=== PATIENT | male | born 1940 | race Caucasian/White ===

== ENCOUNTER 2019-07-24 06:43 | Outpatient (CLI) | payer MEDICARE, MEDICAID, SELFPAY ==
[2019-07-24 06:54] VITALS: BMI 23.2
--- NOTE | 2019-07-24 07:10 | NMCV_ITS ---
NM betsy perf SPECT r/s* [id number] Nacho Esparza Age: 79 Gender: M : 1940 Exam Date: 07/24/2019 07:52 Ordering Phys: Jaime Parish MD Technologist: TODD De Jesus Exam Location: [facility] Indications: CHEST PAIN STRESS TEST Please see separate stress test report in [facility] for full findings IMAGE PROTOCOL Rest/Stress 1 Lexiscan Day Radiopharmaceutical Dose (mCi) Administration Site Administered by Rest: Tc-99m 11.0 IV Brianna Crocker, [employer]CR[employer] Sestamibi Stress:Tc-99m 32.6 IV Brianna Crocker, CONCR[employer]E [employer]SM[employer] Sestamibi Rest: 24-Jul-2019 60 Discovery 630 Stress: 24-Jul-2019 30 Discovery 630 0.4mg Lexiscan. Supine position only as patient was unable to lay prone. SPECT RESULTS Technical Quality: Excellent Raw Data Analysis: Normal Image Corrections: No attenuation or motion correction applied Summed Stress Score: 1 Summed Rest Score: 0 Summed Difference Score: 1 PERFUSION FINDINGS A small area decreases uptake in the mid inferolateral region, with almost complete reversibility. FUNCTIONAL RESULTS (calculated via Gated SPECT) Stress Image LV EF (%): 59 Stress EDV (mL):111 TID: 0.91 Stress ESV (mL):45 FUNCTIONAL FINDINGS: Segmental wall motion analysis revealing diffuse hypokinesia of the septum IMPRESSIONS 1. Myocardial perfusion imaging revealing a small area of reversible defect in the mid inferolateral region, suggestive of ischemia in the distribution of the left circumflex artery. 2. Normal LV ejection fraction of 59% 3. LV wall motion analysis revealing diffuse hypokinesia of the septum. 4. Slightly elevated LV cavity with an end-systolic volume of 45 mL. No similar previous studies available for comparison Dr Tevin Navarro MD FACC (Electronically Signed) Final Date: 24 July 2019 22:36 S
--- NOTE | 2019-07-24 07:10 | ECG_ITS ---
NAME OF STUDY: LEXISCAN SESTAMIBI STRESS TEST INDICATION: Chest Pain PROCEDURE: At the baseline, the EKG revealed sinus bradycardia with a rate of 52 bpm. 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 Q waves in the high lateral leads suggestive of old lateral wall myocardial infarction. Nonspecific T wave changes in the inferior leads. The baseline blood pressure was 154/82 mm Hg with a heart rate of 51 beats/min. Lexiscan was infused over a period of 20 seconds. A total of 0.4 milligrams of Lexiscan was infused. The stress phase was continued for a total of 5 minutes. Heart rate at the end of the stress phase was 65 with a blood pressure 172/74. The EKG at the peak infusion revealed no significant changes. Sestamibi was injected 20 seconds after the Lexiscan infusion. Blood pressure at the end of the recovery phase was 171/76 with a heart rate of 63 per minute. CONCLUSION: 1. No significant EKG changes with the LexiScan infusion 2. No LexiScan induced chest pain or cardiac arrhythmia 3. Normal blood pressure and heart rate response 4. Sestamibi/sestamibi perfusion scan pending; see separate report. Electronically Signed On 07-27-2019 6:43:17 CDT by Tevin Navarro M.D. [email or web address]
[2019-07-24] MEDS: regadenoson 0.4 Mg/5 ml Syringe IVP (09:02)
--- NOTE | 2019-07-24 09:02 | SUR.PREOP ---
Patient reports no pain or discomfort prior to the start of the procedure.
[2019-07-24 09:14] VITALS: BP 171/76; PULSE 63
== END 2019-07-24 06:44 | disposition home or self-care (01) ==
LOC: CDL 06:48
PROVIDERS: Family Provider Internal Medicine; PCP Internal Medicine; Visit Provider Internal Medicine
DX: R07.9 Chest pain, unspecified (principal)
CPT/HCPCS: 78452; 93017; A9500; J2785

== ENCOUNTER → 2021-11-12 12:14 | Outpatient (BNVA) | payer MEDICARE, MEDICAID, SELFPAY | PROVIDERS: Family Provider Internal Medicine; PCP Family Medicine; Visit Provider Internal Medicine Cardiovascular Disease | DX: R55 Syncope and collapse (principal); I63.9 Cerebral infarction, unspecified; I49.3 Ventricular premature depolarization; I49.1 Atrial premature depolarization | CPT/HCPCS: 93229 ==

== ENCOUNTER 2022-01-22 08:13 | Outpatient (CLI) | payer MEDICARE, MEDICAID, SELFPAY ==
--- NOTE | 2022-01-22 12:45 | USCV_ITS ---
IsaiasNacho ferreira Age: 81 Gender: M : 1940 Exam Date: 01/22/2022 08:37 Ordering Phys: Tevin Navarro MD ([email or web address]) Technologist: PETER Exam Location: [facility] [place] Indication: SYNCOPE, COLLAPSE, CVA Risk Factors: Previous Vascular Surgery: Right Brachial BP: / Left Brachial BP: / Right Left Velocity (cm/s) Spectral Plaque Velocity (cm/s) Spectral Plaque Syst/Diast Broadening Syst/Diast Broadening 82.90/ 15.40 Prox CCA 78.60 / 11.10 68.40/ 11.10 Mid CCA 66.40 / 11.20 56.50/ 12.50 Distal CCA 65.70 / 9.90 46.80/ 9.50 Prox ICA 48.20 / 14.00 42.70/ 8.20 Mid ICA 55.90 / 16.30 74.90/ 15.10 Distal ICA 65.30 / 18.60 100.80 ECA 174.80 0.90 ICA/CCA 0.83 Vertebral 47.50/ 9.60 cm/s 47.40/ 5.60 cm/s Subclavian 130.1 66.40 0 CONCLUSIONS Right ICA stenosis <50%. Mild atheromatous plaque right carotid bulb/ICA. Left ICA stenosis <50%. Mild atheromatous plaque left carotid bulb/ICA. Normal antegrade Doppler flow noted in the right vertebral artery. Normal antegrade Doppler flow noted in the left vertebral artery. Castillo Ureña MD (Electronically Signed) Final Date: 22 January 2022 13:33 S
== END 2022-01-22 08:14 | disposition home or self-care (01) ==
PROVIDERS: PCP Family Medicine; Visit Provider Internal Medicine Cardiovascular Disease
DX: I65.23 Occlusion and stenosis of bilateral carotid arteries (principal); R55 Syncope and collapse; I77.9 Disorder of arteries and arterioles, unspecified; I63.9 Cerebral infarction, unspecified
CPT/HCPCS: 93880

== ENCOUNTER 2022-05-17 03:42 | Emergency (ER) | payer MEDICARE, MEDICAID, SELFPAY ==
[2022-05-17] VITALS (32 sets, daily range): BP systolic 100–133; BP diastolic 54–100; PULSE 80–119; RESP 6–34; TEMP 36.8; O2SAT 90–96
--- NOTE | 2022-05-17 | CTR_ITS ---
PROCEDURE INFORMATION: Exam: CTA Chest With Contrast Exam date and time: 05/17/2022 4:58 AM Age: 82 years old Clinical indication: Shortness of breath; Prior surgery; Surgery date: 6+ months; Surgery type: Cabg; Patient HX: Chest pain, elevated d-dimer, troponin; Additional info: SOB TECHNIQUE: Imaging protocol: Computed tomographic angiography of the chest with contrast. 3D rendering (Not supervised by radiologist): MIP and/or 3D reconstructed images were created by the technologist. Radiation optimization: All CT scans at this facility use at least one of these dose optimization techniques: automated exposure control; mA and/or kV adjustment per patient size (includes targeted exams where dose is matched to clinical indication); or iterative reconstruction. Contrast material: OMNI 350; Contrast volume: 100 ml; Contrast route: INTRAVENOUS (IV); COMPARISON: CR (CHEST, ) 05/17/2022 3:56 AM RADIATION DOSE METRICS: Total DLP (mGy-cm): 884.33 FINDINGS: Pulmonary arteries: Normal. No pulmonary emboli. Aorta: Moderate burden of atherosclerotic plaque within the thoracic aorta. Thyroid: Enlarged left thyroid lobe with coarse calcifications. Lungs: Calcified granuloma in the left lower lobe. Mild airspace opacities in the right lower lobe. Pleural spaces: Small right pleural effusion. Heart: Cardiomegaly. Lymph nodes: Unremarkable. No enlarged lymph nodes. Spleen: Calcified splenic granulomas. Kidneys and ureters: Left renal sinus cysts. Bones/joints: Unremarkable. No acute fracture. Soft tissues: Unremarkable. CT/CT angio chest PE protcl [id number] IMPRESSION: 1. No pulmonary emboli identified. 2. Small right pleural effusion with mild right lower lobe airspace opacities, which may reflect atelectasis versus pneumonia. COMMENTS: Consistent with the [employer]'s Incidental Findings Committee white paper (J Am Astrid Radiol 2018): Any incidental renal lesion less than 1 cm or classified as too small to characterize, or any incidental cystic renal lesion characterized as simple-appearing, is likely benign. No follow-up imaging is recommended for these lesions per consensus recommendations based on imaging criteria.
--- NOTE | 2022-05-17 03:43 | XRR_ITS ---
PROCEDURE INFORMATION: Exam: XR Chest Exam date and time: 05/17/2022 3:56 AM Age: 82 years old Clinical indication: Pain; Chest pressure; Prior surgery; Surgery date: 6+ months; Surgery type: Cabg; Additional info: Cp TECHNIQUE: Imaging protocol: Radiologic exam of the chest. Views: 1 view. COMPARISON: CR XR chest 2V* [id number] 02/08/2018 2:40 PM FINDINGS: Lungs: Moderate COPD. Lung base densities have mildly increased. Pleural spaces: Unremarkable. No pleural effusion. No pneumothorax. Heart/Mediastinum: The heart is large. Previous CABG. Vasculature: Diffuse vascular calcification. Bones/joints: Unremarkable. XR/XR chest 1V portable [id number] IMPRESSION: 1. Increasing areas of lung base atelectasis or scarring. 2. No definite acute finding. 3. Large heart with CABG. Diffuse vascular calcification.
--- NOTE | 2022-05-17 03:43 | ECG_ITS ---
[facility] Test Date: 2022-05-17 Pat Name: Nacho Esparza Department: Room: Gender: Male Oncology Rep: : 1940 Requested By: Elba Card Order Number: [id number] Emma MD: Tevin Navarro M.D. 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 [id number]
--- NOTE | 2022-05-17 03:48 | W.ED.CHESTPA ---
Documented by User: Elba Card MD 05/17/22 05:35 HPI - Chest Pain General: Chief Complaint: Chest Pain Stated Complaint: cp Time Seen by Provider: 05/17/22 03:43 Source: patient Mode of arrival: ambulatory Limitations: no limitations History of Present Illness: 82-year-old male states that he woke up tonight at 1 AM with a sharp pain in the right side of his chest he states that radiated to his right shoulder. States he has no relieving or improving factors he states he does have some worsening pain with deep breaths no cough no fever rates his pain a 3 out of 10 currently did receive nitro and aspirin in route Associated symptoms: Deny abdominal pain, dyspnea, fever(s), nausea or vomiting Review of Systems Const: Denies: fever(s), chills, body aches or change in appetite Eyes: Denies: blurry vision or eye discomfort ENMT: Denies: throat pain or dental pain Card: Reports: chest pain Resp: Denies: dyspnea GI: Denies: abdominal pain, nausea, vomiting or diarrhea : Denies: dysuria Musc: Denies: neck pain or back pain Skin/Breast: Denies: rash Neuro: Denies: headache(s) Psych: Denies: depression Dario/Lymph: Denies: easy bruising All/Imm: Denies: urticaria PFSH ED PFSH: Medical History A-fib BPH (benign prostatic hyperplasia) Diabetes mellitus Gout Hand arthritis Hyperlipidemia Hypertension Iron deficiency Post-polio syndrome Surgical History History of esophagogastroduodenoscopy (EGD) History of open heart surgery S/P appendectomy S/P colonoscopy S/P eye surgery Family History Father Bleeding disorder Clotting disorder CAD (coronary artery disease), Onset Age: 60 Stroke Mother Clotting disorder Brother Clotting disorder Brother Clotting disorder Other Cancer Heart disease Denies family history of Diabetes Dementia Suicide Anesthesia complication Lung disease Social History Smoking and tobacco status: former smoker Alcohol intake: current Alcohol intake frequency: holidays/special occasions only Household members: spouse Housing: House Marital status: Current occupational status: retired Physical Exam Const: COMMON NORMALS: no acute distress, patient oriented x3 and healthy appearing HENMT: COMMON NORMALS: normocephalic and atraumatic HEAD & SCALP: normocephalic and atraumatic Eye: COMMON NORMALS: Equal, round and reactive pupils present and EOMs intact bilaterally PUPIL: Yes Equal, round and reactive pupils present Neck/C-Spine: COMMON NORMALS: full ROM and supple Chest: COMMONS NORMALS: normal inspection of the chest and normal palpation of entire chest wall Resp: COMMON NORMALS: normal respiratory effort, No retractions, No use of accessory muscles and clear to auscultation bilaterally AUSCULTATION: clear to auscultation bilaterally Cardio: COMMON NORMALS: regular rate, regular rhythm and No murmurs present (Cardio) RATE: regular rate RHYTHM: regular rhythm GI: COMMON NORMALS: Normal to inspection, nondistended, normoactive bowel sounds present, Soft to palpation, non-tender and no masses PALPATION: Yes Soft to palpation Extremity: COMMON NORMALS: normal to inspection and full ROM Neuro: COMMON NORMALS: patient oriented x3, moves all extremities and no focal motor deficits Psych: COMMON NORMALS: mental status grossly normal, Normal thought process present and cooperative THOUGHT PROCESS: Normal thought process present Skin: COMMON NORMALS: no rashes or lesions noted and no wounds GENERAL SKIN EXAM: no rashes or lesions noted Course Vital Signs: Vital signs: Vital Signs Temperature 98.2 F 05/17/22 03:43 Pulse Rate 94 05/17/22 08:50 Respiratory Rate 20 H 05/17/22 08:50 Blood Pressure 119/80 05/17/22 08:50 Pulse Oximetry 91 05/17/22 08:50 Oxygen Delivery Me thod 05/17/22 03:48 MDM - Chest Pain Lab Data 05/17/22 03:52 05/17/22 03:52 Radiology Impressions Chest CTA 05/17/22 00:00 IMPRESSION: 1. No pulmonary emboli identified. 2. Small right pleural effusion with mild right lower lobe airspace opacities, which may reflect atelectasis versus pneumonia. COMMENTS: Consistent with the [place] [employer]'s Incidental Findings Committee white paper (J Am Astrid Radiol 2018): Any incidental renal lesion less than 1 cm or classified as too small to characterize, or any incidental cystic renal lesion characterized as simple-appearing, is likely benign. No follow-up imaging is recommended for these lesions per consensus recommendations based on imaging criteria. Chest X-Ray 05/17/22 03:43 IMPRESSION: 1. Increasing areas of lung base atelectasis or scarring. 2. No definite acute finding. 3. Large heart with CABG. Diffuse vascular calcification. Laboratory Results WBC 9.0 10^3/uL (4.0-10.0) 05/17/22 03:52 RBC 4.40 10^6/uL (4.1-5.3) 05/17/22 03:52 Hgb 13.7 g/dL (11.7-16.6) 05/17/22 03:52 Hct 41.3 % (42.0-52.0) L 05/17/22 03:52 MCV 93.9 fl (80-94) 05/17/22 03:52 MCH 31.1 pg (28.0-34.0) 05/17/22 03:52 MCHC 33.2 g/dL (30.0-36.0) 05/17/22 03:52 RDW 13.2 % (12.1-15.1) 05/17/22 03:52 Plt Count 129 10^3/cmm (130-400) L 05/17/22 03:52 MPV 11.1 fL (7.4-10.4) H 05/17/22 03:52 Neut % (Auto) 77.8 % 05/17/22 03:52 Lymph % (Auto) 11.8 % 05/17/22 03:52 [place] % (Auto) 8.8 % 05/17/22 03:52 Eos % (Auto) 0.7 % 05/17/22 03:52 Baso % (Auto) 0.3 % 05/17/22 03:52 Neut # (Auto) 7.03 10^3/uL (1.8-7.7) 05/17/22 03:52 Lymph # (Auto) 1.1 10^3/uL (0.8-4.8) 05/17/22 03:52 [place] # (Auto) 0.8 10^3/uL (0.2-0.9) 05/17/22 03:52 Eos # (Auto) 0.1 10^3/uL (0.0-0.8) 05/17/22 03:52 Baso # (Auto) 0.0 10^3/uL (0.0-0.1) 05/17/22 03:52 Nucleated RBC % (auto) 0 % 05/17/22 03:52 Nucleated RBCs # 0.0 /100WBC 05/17/22 03:52 PT 14.80 SECONDS (12.1-14.9) 05/17/22 03:52 INR 1.13 (0.8-1.2) 05/17/22 03:52 D-Dimer 1.22 ug/mIFEU (0-0.59) H 05/17/22 03:52 Sodium 137 mmol/L (136-145) 05/17/22 03:52 Potassium 3.8 mmol/L (3.5-5.1) 05/17/22 03:52 Chloride 103 mmol/L (98-107) 05/17/22 03:52 Carbon Dioxide 23 mmol/L (22-29) 05/17/22 03:52 Anion Gap 14.8 (5-19) 05/17/22 03:52 BUN 21 mg/dL (8-23) 05/17/22 03:52 Creatinine 0.9 mg/dL (0.7-1.2) 05/17/22 03:52 GFR Calculation Not Reportable 05/17/22 03:52 Glucose 193 mg/dL (65-115) H 05/17/22 03:52 Calculated Osmolality 292 mOsm/kg (285-295) 05/17/22 03:52 Calcium 8.3 mg/dL (8.5-10.5) L 05/17/22 03:52 Total Bilirubin 0.7 mg/dL (0.15-1.2) 05/17/22 03:52 AST 18 U/L (0-40) 05/17/22 03:52 ALT 18 U/L (0-41) 05/17/22 03:52 Alkaline Phosphatase 89 U/L (40-130) 05/17/22 03:52 Troponin T Baseline 29 ng/L (0-15) H 05/17/22 03:52 Troponin T 120 Minute 20.43 ng/L (0-15) H 05/17/22 06:05 Delta Troponin T -8.57 ABS# (0-10) L 05/17/22 06:05 NT-Pro-B Natriuret Pep 1193 pg/mL (0-450) H 05/17/22 03:52 Total Protein 6.5 g/dL (6.6-8.7) L 05/17/22 03:52 Albumin 4.0 g/dL (3.5-5.2) 05/17/22 03:52 Globulin 2.5 g/dL (1.3-4.6) 05/17/22 03:52 EKG Data EKG 1: I personally reviewed and interpreted this EKG as follows: EKG interpretation date: 05/17/22 EKG interpretation time: 03:47 Interpretation: r hr [address] or t wave abnormalities qrs 101 qtc 420 Discharge Plan Discharge Patient Disposition: Home Clinical Impression: A-fib, Chest pain Condition: Stable Prescriptions: New doxycycline hyclate 100 mg capsule 100 mg PO BID 7 Days Qty: 14 0RF No Action tramadol 50 mg tablet 50 mg PO Q8H PRN (Reason: pain) Qty: 60 5RF nitroglycerin 0.4 mg tablet, sublingual 0.4 mg SUBLINGUAL Q5M PRN (Reason: chest pain) Qty: 25 3RF Rx Instructions: do not exceed 3 doses per episode glipizide 10 mg tablet extended release 24hr 10 mg PO DAILY insulin glargine [Basaglar KwikPen U-100 Insulin] 100 unit/mL (3 mL) insulin pen 14 unit SUBCUT DAILY amlodipine 10 mg tablet 10 mg PO DAILY aspirin [Adult Aspirin Regimen] 81 mg tablet,delayed release (DR/EC) 81 mg PO DAILY Qty: 90 3RF lisinopril 40 mg tablet 40 mg PO DAILY Qty: 90 3RF (DME) blood-glucose meter [Accu-Chek Naty Plus Meter] Misc See Rx Instructions .ROUTE .MEDSUPPLY Qty: 1 0RF Rx Instructions: check blood sugar once daily as directed (DME) Accu-Chek Naty Plus test strp Strip See Rx Instructions .ROUTE .MEDSUPPLY Qty: 100 5RF Rx Instructions: test blood sugar once daily as directed Discharge Orders: Discharge ED (Routine); Ordered 05/17/22 Ordered By: Charles Taylor Referrals: Ashleigh Ulloa MD [Primary Care Provider] - Discharge Diet: Usual diet Discharge Activity: Increase activity as tolerated Patient Instructions: Opioid Safety, Pain Management Activity Restrictions/Additional Instructions: As we discussed while you are in the emergency department we did not have any indication that you are having a heart attack or other serious condition at the time you were in the emergency department. There was some findings on your chest CT that we shared and if you develop fevers, productive cough, body aches or worsening feelings of infection etc. you should begin the antibiotics that we have sent to your pharmacy. If you do not develop any of the symptoms you do not need to take those antibiotics. Should you develop sustained chest pain, shortness of breath or any other concerns return to this or the nearest emergency department. Otherwise continue all your usual medications as previously prescribed. Coding Level of Care Code ED Field Support Rep for Chg Fwd Exam Comprehensive Documented by User: Charles Taylor DO 05/17/22 09:35 HPI - Chest Pain General: Chief Complaint: Chest Pain Stated Complaint: cp Time Seen by Provider: 05/17/22 03:43 [facility] ED PFSH: Medical History A-fib BPH (benign prostatic hyperplasia) Diabetes mellitus Gout Hand arthritis Hyperlipidemia Hypertension Iron deficiency Post-polio syndrome Surgical History History of esophagogastroduodenoscopy (EGD) History of open heart surgery S/P appendectomy S/P colonoscopy S/P eye surgery Family History Father Bleeding disorder Clotting disorder CAD (coronary artery disease), Onset Age: 60 Stroke Mother Clotting disorder Brother Clotting disorder Brother Clotting disorder Other Cancer Heart disease Denies family history of Diabetes Dementia Suicide Anesthesia complication Lung disease Social History Smoking and tobacco status: former smoker Alcohol intake: current Alcohol intake frequency: holidays/special occasions only Household members: spouse Housing: House Marital status: Current occupational status: retired Course Reevaluation(s): Reevaluation #1: Assumed care of this patient from Dr. Card. We reviewed his current presentation and pending work-up. Time: 06:02 Reevaluation #2: Patient was interviewed and reexamined. Patient states that he developed some right shoulder pain and seem to go into his left shoulder approximately 1 AM this morning. He states there is no associated diaphoresis, shortness of breath, ripping tearing pain etc. He has not had any recent fevers cough or illness. He does admit to being pretty active and he cut wood in the last few days but that is not something he normally does and he does not recall feeling like he strained a muscle or hurt himself at that time. He is alert in no acute distress. Focused examination reveals him to be alert and responsive. His chest is remarkable for tenderness in the anterior portion laterally both on the right and the left particularly in the pectoralis muscle region. No central chest tenderness. Symptoms are exacerbated somewhat with deep breaths. His cardiovascular Tom is regular with out murmur, lungs are clear. Abdomen is soft and his extremities feel no edema no calf tenderness. He has imaging are reassuring. Does have lower lung atelectasis versus infiltrate per radiology however again he has had no fevers or chills making pneumonia or other infection extremely less likely. Certainly no evidence of PE. His serial EKGsThis patient returns to the emergency department. Revealed no ischemic changes he is in atrial fib flutter with a controlled ventricular response which has been documented in prior cardiology evaluations. I discussed all findings and their implications and limitations with the patient and family. While his initial troponin was slightly elevated over the cutoff the second troponin has followed significantly mitigating against any ongoing ischemia. We discussed risks and benefits of continued observation versus discharge to home follow-up and he is only in favor the latter versus the former. He has no symptoms that suggest infectious process however there is some questionable changes on his chest CT and we discussed delayed antibiotic prescription should he develop fevers, present persistent or worsening cough, body aches etc. He acknowledged this plan as well. It is felt that current symptoms are likely related to musculoskeletal etiology as the examination today by me reproduces his symptoms as stated in his original complaint. We discussed return precautions in detail. Stable at this time for outpatient management as per his wishes. Time: 09:30 Vital Signs: Vital signs: Vital Signs Temperature 98.2 F 05/17/22 03:43 Pulse Rate 94 05/17/22 08:50 Respiratory Rate 20 H 05/17/22 08:50 Blood Pressure 119/80 05/17/22 08:50 Pulse Oximetry 91 05/17/22 08:50 Oxygen Delivery La thod 05/17/22 03:48 MDM - Chest Pain Medical Decision Making Patient with a known history of atrial fibrillation who presented with right-sided and left-sided shoulder pain. His evaluation here initially showed a elevated troponin as well as an elevated D-dimer. Subsequent troponins fell as well as a CTA was negative for any findings that suggested a thromboembolic event etc. His EKGs revealed no ischemic changes I did have a controlled ventricular response of his atrial for flutter. Differential initially included ACS, pulmonary embolus, other significant tensional causes such as pleurisy, pneumonia etc. No clear evidence of any of these conditions at this time and seems more likely due to a musculoskeletal etiology likely related to his physical activity that preceded his current presentation however we discussed delayed antibiotic use, return precautions in detail etc. Both he and his family agreed and were in inclined to be managed as an outpatient with good return precautions. Stable at this time. Medical Records I reviewed the patient's medical records. Lab Data I reviewed the patient's lab results. 05/17/22 03:52 05/17/22 03:52 Radiology Impressions Chest CTA 05/17/22 00:00 IMPRESSION: 1. No pulmonary emboli identified. 2. Small right pleural effusion with mild right lower lobe airspace opacities, which may reflect atelectasis versus pneumonia. COMMENTS: Consistent with the [place] [employer]'s Incidental Findings Committee white paper (J Am Astrid Radiol 2018): Any incidental renal lesion less than 1 cm or classified as too small to characterize, or any incidental cystic renal lesion characterized as simple-appearing, is likely benign. No follow-up imaging is recommended for these lesions per consensus recommendations based on imaging criteria. Chest X-Ray 05/17/22 03:43 IMPRESSION: 1. Increasing areas of lung base atelectasis or scarring. 2. No definite acute finding. 3. Large heart with CABG. Diffuse vascular calcification. Laboratory Results WBC 9.0 10^3/uL (4.0-10.0) 05/17/22 03:52 RBC 4.40 10^6/uL (4.1-5.3) 05/17/22 03:52 Hgb 13.7 g/dL (11.7-16.6) 05/17/22 03:52 Hct 41.3 % (42.0-52.0) L 05/17/22 03:52 MCV 93.9 fl (80-94) 05/17/22 03:52 MCH 31.1 pg (28.0-34.0) 05/17/22 03:52 MCHC 33.2 g/dL (30.0-36.0) 05/17/22 03:52 RDW 13.2 % (12.1-15.1) 05/17/22 03:52 Plt Count 129 10^3/cmm (130-400) L 05/17/22 03:52 MPV 11.1 fL (7.4-10.4) H 05/17/22 03:52 Neut % (Auto) 77.8 % 05/17/22 03:52 Lymph % (Auto) 11.8 % 05/17/22 03:52 [place] % (Auto) 8.8 % 05/17/22 03:52 Eos % (Auto) 0.7 % 05/17/22 03:52 Baso % (Auto) 0.3 % 05/17/22 03:52 Neut # (Auto) 7.03 10^3/uL (1.8-7.7) 05/17/22 03:52 Lymph # (Auto) 1.1 10^3/uL (0.8-4.8) 05/17/22 03:52 [place] # (Auto) 0.8 10^3/uL (0.2-0.9) 05/17/22 03:52 Eos # (Auto) 0.1 10^3/uL (0.0-0.8) 05/17/22 03:52 Baso # (Auto) 0.0 10^3/uL (0.0-0.1) 05/17/22 03:52 Nucleated RBC % (auto) 0 % 05/17/22 03:52 Nucleated RBCs # 0.0 /100WBC 05/17/22 03:52 PT 14.80 SECONDS (12.1-14.9) 05/17/22 03:52 INR 1.13 (0.8-1.2) 05/17/22 03:52 D-Dimer 1.22 ug/mIFEU (0-0.59) H 05/17/22 03:52 Sodium 137 mmol/L (136-145) 05/17/22 03:52 Potassium 3.8 mmol/L (3.5-5.1) 05/17/22 03:52 Chloride 103 mmol/L (98-107) 05/17/22 03:52 Carbon Dioxide 23 mmol/L (22-29) 05/17/22 03:52 Anion Gap 14.8 (5-19) 05/17/22 03:52 BUN 21 mg/dL (8-23) 05/17/22 03:52 Creatinine 0.9 mg/dL (0.7-1.2) 05/17/22 03:52 GFR Calculation Not Reportable 05/17/22 03:52 Glucose 193 mg/dL (65-115) H 05/17/22 03:52 Calculated Osmolality 292 mOsm/kg (285-295) 05/17/22 03:52 Calcium 8.3 mg/dL (8.5-10.5) L 05/17/22 03:52 Total Bilirubin 0.7 mg/dL (0.15-1.2) 05/17/22 03:52 AST 18 U/L (0-40) 05/17/22 03:52 ALT 18 U/L (0-41) 05/17/22 03:52 Alkaline Phosphatase 89 U/L (40-130) 05/17/22 03:52 Troponin T Baseline 29 ng/L (0-15) H 05/17/22 03:52 Troponin T 120 Minute 20.43 ng/L (0-15) H 05/17/22 06:05 Delta Troponin T -8.57 ABS# (0-10) L 05/17/22 06:05 NT-Pro-B Natriuret Pep 1193 pg/mL (0-450) H 05/17/22 03:52 Total Protein 6.5 g/dL (6.6-8.7) L 05/17/22 03:52 Albumin 4.0 g/dL (3.5-5.2) 05/17/22 03:52 Globulin 2.5 g/dL (1.3-4.6) 05/17/22 03:52 Discharge Plan Discharge Patient Disposition: Home Clinical Impression: A-fib, Chest pain Condition: Stable Prescriptions: New doxycycline hyclate 100 mg capsule 100 mg PO BID 7 Days Qty: 14 0RF No Action tramadol 50 mg tablet 50 mg PO Q8H PRN (Reason: pain) Qty: 60 5RF nitroglycerin 0.4 mg tablet, sublingual 0.4 mg SUBLINGUAL Q5M PRN (Reason: chest pain) Qty: 25 3RF Rx Instructions: do not exceed 3 doses per episode glipizide 10 mg tablet extended release 24hr 10 mg PO DAILY insulin glargine [Basaglar KwikPen U-100 Insulin] 100 unit/mL (3 mL) insulin pen 14 unit SUBCUT DAILY amlodipine 10 mg tablet 10 mg PO DAILY aspirin [Adult Aspirin Regimen] 81 mg tablet,delayed release (DR/EC) 81 mg PO DAILY Qty: 90 3RF lisinopril 40 mg tablet 40 mg PO DAILY Qty: 90 3RF (DME) blood-glucose meter [Accu-Chek Naty Plus Meter] [facility] See Rx Instructions .ROUTE .MEDSUPPLY Qty: 1 0RF Rx Instructions: check blood sugar once daily as directed (DME) Accu-Chek Naty Plus test strp Strip See Rx Instructions .ROUTE .MEDSUPPLY Qty: 100 5RF Rx Instructions: test blood sugar once daily as directed Discharge Orders: Discharge ED (Routine); Ordered 05/17/22 Ordered By: Charles Taylor Referrals: Ashleigh Ulloa MD [Primary Care Provider] - Discharge Diet: Usual diet Discharge Activity: Increase activity as tolerated Patient Instructions: Opioid Safety, Pain Management Activity Restrictions/Additional Instructions: As we discussed while you are in the emergency department we did not have any indication that you are having a heart attack or other serious condition at the time you were in the emergency department. There was some findings on your chest CT that we shared and if you develop fevers, productive cough, body aches or worsening feelings of infection etc. you should begin the antibiotics that we have sent to your pharmacy. If you do not develop any of the symptoms you do not need to take those antibiotics. Should you develop sustained chest pain, shortness of breath or any other concerns return to this or the nearest emergency department. Otherwise continue all your usual medications as previously prescribed. Coding Level of Care Code ED Field Support Rep for Diego Motley Exam Comprehensive
[2022-05-17 04:03] LABS: Basophils % 0.3 %; Eosinophils # 0.1 10^3/uL (0.0-0.8); Eosinophils % 0.7 %; Hematocrit 41.3 % (42.0-52.0); Hemoglobin 13.7 g/dL (11.7-16.6); Lymphocytes # 1.1 10^3/uL (0.8-4.8); Lymphocytes % 11.8 %; Mean Corpuscular HGB Conc 33.2 g/dL (30.0-36.0); Mean Corpuscular Hemoglobin 31.1 pg (28.0-34.0); Mean Corpuscular Volume 93.9 fl (80-94); Mean Platelet Volume 11.1 fL (7.4-10.4); Monocytes # 0.8 10^3/uL (0.2-0.9); Monocytes % 8.8 %; Neutrophils # 7.03 10^3/uL (1.8-7.7); Neutrophils % 77.8 %; Nucleated Red Blood Cells % 0 %; Platelet Count 129 10^3/cmm (130-400); Red Cell Distribution Width 13.2 % (12.1-15.1)
[2022-05-17 04:22] LABS: INR 1.13 (0.8-1.2)
[2022-05-17 04:24] LABS: D Dimer 1.22 ug/mIFEU (0-0.59)
[2022-05-17 04:33] LABS: Troponin(5th) Baseline 29 ng/L (0-15)
[2022-05-17 04:41] LABS: Alanine Aminotransferase 18 U/L (0-41); Alkaline Phosphatase 89 U/L (40-130); Aspartate Amino Transferase 18 U/L (0-40); Blood Urea Nitrogen 21 mg/dL (8-23); Calcium 8.3 mg/dL (8.5-10.5); Carbon Dioxide 23 mmol/L (22-29); Globulin 2.5 g/dL (1.3-4.6); Glucose 193 mg/dL (65-115); NT Pro B Type Natriuretic Pept 1193 pg/mL (0-450); Total Bilirubin 0.7 mg/dL (0.15-1.2); Total Protein 6.5 g/dL (6.6-8.7)
[2022-05-17] MEDS: iohexol 350 mg/mL 500 mL Btl (per mL) IV (05:13)
--- NOTE | 2022-05-17 05:43 | ECG_ITS ---
[facility] Test Date: 2022-05-17 Pat Name: Nacho Esparza Department: Room: Gender: Male Rehab Liaison: : 1940 Requested By: Elba Card Order Number: [id number] Emma MD: Tevin Navarro M.D. Measurements Intervals [place] Rate: 95 P: 0 SC: 0 QRS: -59 QRSD: 86 T: 40 QT: 359 QTc: 453 Interpretive Statements ATRIAL FLUTTER/TACHYCARDIA LEFT ANTERIOR FASCICULAR BLOCK [QRS AXIS <= -45, QR IN I, RS IN II] INFERIOR MYOCARDIAL INFARCTION , PROBABLY OLD [40+ ms Q WAVE AND/OR ST/T ABNORMALITY IN II/aVF] Compared to ECG 05/17/2022 03:47:38 No significant changes Electronically Signed On 05-17-2022 20:24:43 [employer] by Tevin Navarro M.D. [email or web address]
[2022-05-17 06:33] LABS: Troponin 5 2HR 20.43 ng/L (0-15)
[2022-05-17 06:34] LABS: Anion Gap 14.8 (5-19); Chloride 103 mmol/L (98-107); Osmolality Calculated 292 mOsm/kg (285-295); Potassium 3.8 mmol/L (3.5-5.1); Sodium 137 mmol/L (136-145)
== END 2022-05-17 09:50 | disposition home or self-care (01) ==
PROVIDERS: Emergency Provider Emergency Medicine; PCP Family Medicine
DX: I48.91 Unspecified atrial fibrillation (principal); R07.9 Chest pain, unspecified; Z79.84 Long term (current) use of oral hypoglycemic drugs; Z79.4 Long term (current) use of insulin; Z79.82 Long term (current) use of aspirin; Z95.1 Presence of aortocoronary bypass graft; Z87.891 Personal history of nicotine dependence; E11.9 Type 2 diabetes mellitus without complications; E78.5 Hyperlipidemia, unspecified
CPT/HCPCS: 71045; 71275; 80053; 83880; 84484; 85025; 85378; 85610; 93005; 99285; Q9967

== ENCOUNTER → 2022-09-17 15:12 | Outpatient (BNVA) | payer MEDICARE, MEDICAID, SELFPAY | PROVIDERS: PCP Family Medicine; Visit Provider Dermatology | DX: S80.922A Unspecified superficial injury of left lower leg, initial encounter (principal); X58.XXXA Exposure to other specified factors, initial encounter; L90.5 Scar conditions and fibrosis of skin; I87.2 Venous insufficiency (chronic) (peripheral) | CPT/HCPCS: 97597; 99213 ==